=== PATIENT | female | born 1960 | race Caucasian/White ===

== ENCOUNTER → 2016-06-19 | Outpatient (REF) | payer MEDICARE, MEDICAID ==
[~2016-06-19] MED LIST: /ESOM40CA; /LOR25TA PO; /WARF5TA PO; ASPI325T; ASPI325T PO; ASPI325T10 PO; AVAP150T; CEPH500C PO; CETI10TA3 PO; CLOP75TA2 PO; CODE15TA PO; CRES40TA PO; CYCLOBENZAPRINE PO; DEPA500T2 PO; DIFL200T PO; EMLA2.5C EX; FISH500C PO; FLUC200T2 PO; GABA300C2 PO; GLIP5TAB20; GLUC1000; HUMA100I5 SC; HUMU70IN SC; HYDR1TAB97 PO; IMOD2TAB14 PO; INSUDET SC; JANUVIA; LANTINJ4 SC; LASI80TA; LOMO2.5T PO; NEUR300C PO; NITR0.4S; NITR100C37 PO; NOVO70VL SC; PEPC20TA2; PERC5TAB6 PO; PLAV75TA2; PREG50CA PO; ROSU10TA; TIZA2TAB3 PO; TORS20TA2; TORS20TA2 PO; TRAM50TA2 PO; TYLE325T5 PO; VOLT1GEL24 TD; WARF2TAB44 PO; ZEBE5TAB; ZETI10TA2 PO; ZOFR20TA PO; [UNRECOGNIZED DRUG - OTHER] PO; [UNRECOGNIZED DRUG - OTHER] SQ; crestor PO; humalog SQ
[2016-06-19 15:37] LABS: INR 2.34
== END ==
LOC: M LAB REF 14:58
PROVIDERS: ATTEND Internal Medicine
DX: Z95.811 Presence of heart assist device (principal); Z79.01 Long term (current) use of anticoagulants; I50.42 Chronic combined systolic (congestive) and diastolic (congestive) heart failure; I50.9 Heart failure, unspecified

== ENCOUNTER → 2016-07-09 | Outpatient (REF) | payer MEDICARE, MEDICAID ==
[~2016-07-09] MED LIST changes: +HYDR-3713 PO; -HYDR1TAB97 PO; -IMOD2TAB14 PO; +IMOD2TAB16 PO
[2016-07-09 17:33] LABS: INR 2.39
== END ==
LOC: M LAB REF 16:59
PROVIDERS: ATTEND Internal Medicine
DX: I50.9 Heart failure, unspecified (principal); Z95.811 Presence of heart assist device; I42.8 Other cardiomyopathies

== ENCOUNTER → 2016-07-29 | Outpatient (REF) | payer MEDICARE, MEDICAID ==
[2016-07-29 13:47] LABS: INR 1.89
== END ==
LOC: M LAB REF 12:25
PROVIDERS: ATTEND Internal Medicine
DX: I10 Essential (primary) hypertension (principal); Z95.811 Presence of heart assist device; Z79.01 Long term (current) use of anticoagulants; I50.9 Heart failure, unspecified

== ENCOUNTER → 2016-08-05 | Outpatient (REF) | payer MEDICARE, MEDICAID ==
[2016-08-05 11:50] LABS: INR 1.91
== END ==
LOC: M LAB REF 11:32
PROVIDERS: ATTEND Internal Medicine
DX: Z79.01 Long term (current) use of anticoagulants (principal)

== ENCOUNTER → 2016-08-18 | Outpatient (CLI) | payer MEDICARE, MEDICAID ==
--- NOTE | 2016-08-21 23:51 | ECWPNPC ---
PATIENT NAME: LIBRA SHEEHAN : 1960 GENDER: FEMALE VISIT DATE: 08/18/2016 DISCHARGE DATE: 08/18/16 1213 VISIT LOCKED DATE TIME: PHYSICIAN: GOLDIE NARAYAN RESOURCE: GOLDIE NARAYAN REASON FOR APPOINTMENT 1. BACK HISTORY OF PRESENT ILLNESS HISTORY OF PRESENT ILLNESS: PAIN THE PATIENT DESCRIBES THE PAIN... FALL RISK SCREENING: SCREENING :NO FALLS IN THE PAST YEAR TODAY'S VISIT: NOTES: RATES PAIN TODAY 5/10. PAIN IS CENTERED IN LOW BACK WITH RADIATION TO LEFT HIP. DESCRIBES PAIN CONSTANT, ACHING AND BURNING. PAIN IS ALSO SHARP AND STABBING SHOOT AND TENDER. WAS SEEN IN [place] FOR ABD HERNIA - NOT FELT TO BE A SURGICAL CASE AT THIS TIME. IS HAVING PAIN WITH EATING, LYING DOWN. PT'S LAST VISIT HERE WAS 01/22. [facility] PRESCRIBED OXYCODONE FOR MIGRAINE. . CURRENT MEDICATIONS TAKING LOPERAMIDE A-D 2 MG TABLET 1 TABLET ORALLY DAILY PRN TAKING LYRICA 50 MG CAPSULE 1 CAPSULE ORALLY BID TAKING CRESTOR 40 MG TABLET 1 TABLET ORALLY ONCE A DAY TAKING TORSEMIDE 10 MG TABLET 1 TABLET ORALLY ONCE A DAY NEEDED TAKING CLOPIDOGREL BISULFATE 75 MG TABLET 1 TABLET ORALLY ONCE A DAY TAKING DEPAKOTE 500 MG TABLET DELAYED RELEASE 1 TABLET IN AM 2 TABS IN PM ORALLY TWICE A DAY TAKING CEPHALEXIN 500 MG TABLET 1 TABLET ORALLY TWICE A DAY TAKING DIFLUCAN 200 MG TABLET 1 TABLET ORALLY ONCE A WEEK TAKING NOVOLOG MIX 70/30 (70-30) 100 UNIT/ML 1 40 UNITS SUBCUTANEOUS TWICE A DAY TAKING LANTUS SOLUTION 46 UNITS SUBCUTANEOUS EVERY EVENING TAKING WARFARIN SODIUM 4 MG TABLET ORALLY T///S TAKING KLOR-CON 10 10 MEQ TABLET EXTENDED RELEASE 1 TABLET WITH FOOD ORALLY WITH TORSEMIDE ONLY TAKING PERCOCET 10-325 MG TABLET 1 TABLET ORALLY EVERY 4 HRS PRN PAIN MDD=3 CHRONIC PAIN TAKING WARFARIN SODIUM 6 MG TABLET Thu SUN ORALLY ONCE A DAY NOT-TAKING WARFARIN SODIUM 5 MG TABLET 1 TABLET ORALLY // NOT-TAKING ZOFRAN 4 MG TABLET 2 TABLETS ORALLY TID DISCONTINUED VITAMIN B COMPLEX CAPSULE ORALLY DAILY MEDICATION LIST REVIEWED AND RECONCILED WITH THE PATIENT PAST MEDICAL HISTORY DIABETIC HEART PUMP - ON HEART TRANSPLANT LIST 2007 PA X 4 CAD CERVICAL CANCER CHRONIC INFECTIVE PROCESS AT PORT OF HEART PUMP ALLERGIES PENICILLIN (FOR ALLERGIES USE ONLY): HALLICINATIONS TOMATOES: HIVES: ALLERGY BEES: ANAPHYLAXIS: ALLERGY SOCIAL HISTORY GENERAL: TOBACCO USE ARE YOU A:NONSMOKER LEARNING BARRIERS / SPECIAL NEEDS ORIENTED TO PLAN OF CARE: PATIENT, PAIN MANAGEMENT PATIENT, ORIENTED TO PLAN OF CARE: PATIENT, PAIN MANAGEMENT PATIENT. NEW PATIENT PAIN DIARY TODAY'S VISITNOTES FROM 0-10, WHAT LEVEL IS YOUR PAIN TODAY?0 PAIN CLINIC PFS, CLERGY, PUBLIC HEALTH REFERRALS PFS REFERRAL NEEDED?NO CLERGY REFERRAL NEEDED?NO PUBLIC HEALTH REFERRAL NEEDED?NO WAS THE PROVIDER NOTIFIED OF ANY PERTINENT INFO?NO PFS REFERRAL NEEDED?NO CLERGY REFERRAL NEEDED?NO PUBLIC HEALTH REFERRAL NEEDED?NO WAS THE PROVIDER NOTIFIED OF ANY PERTINENT INFO?NO REVIEW OF SYSTEMS CONSTITUTIONAL: ANY CHANGE IN YOUR MEDICAL CONDITION? NO . CHILLS NO . FEVER NO . INFECTION: DO YOU HAVE NEW INFECTIONS? NO . DO YOU HAVE HISTORY OF MRSA? NO . MUSCULOSKELETAL: ANY NEW PATTERNS OF PAIN OR NUMBNESS? NO . GASTROENTEROLOGY: ANY NEW CHANGE IN BOWEL CONTROL? NO . GENITOURINARY: ANY NEW CHANGE IN BLADDER CONTROL? NO . IS THERE A CHANCE YOU COULD BE ? NO . HEMATOLOGY/LYMPH: DO YOU TAKE ANY BLOOD THINNERS? (FOR EXAMPLE- COUMADIN, PLAVIX, AGGRENOX, PLATEL, PRADAXA, OR XARELTO) YES, COUMADIN . WHEN WAS YOUR LAST DOSE? DATE: TIME: 08/17/16 1130 . NEUROLOGY: HAVE YOU FALLEN IN THE PAST 6 MONTHS? NO . ANY NEW EXTREMITY NUMBNESS OR WEAKNESS? NO . MIGRAINES PERSISTANT MIGRAINE FOLLOWED BY DR EAST . CARDIOLOGY: DO YOU HAVE A PACEMAKER OR DEFIBRILLATOR? YES, PACEMAKER/DEFIB AND HEART PUMP . RESPIRATORY: HAVE YOU BEEN SICK IN THE PAST WEEK? NO . FEVER NO . FLU LIKE SYMPTOMS? NO . COUGH NO . INTEGUMENTARY: DO YOU HAVE ANY RASHES OR OPEN SORES? NO . ALLERGIC/IMMUNO: ARE YOU ALLERGIC TO SHELLFISH OR IV DYE? NO . ANY NEW ALLERGIES? NO . PSYCHIATRIC: DO YOU HAVE THOUGHTS OF HURTING YOURSELF OR SOMEONE ELSE? NO . ARE YOU ABUSED, NEGLECTED, OR IN AN UNSAFE ENVIRONMENT? NO . ENDOCRINOLOGY: ARE YOU DIABETIC? YES . OTHER: DO YOU NEED ANY PRESCRIPTIONS? YES . IF YES, PLEASE LIST: PERCOCET . ANY NEW PROBLEMS WITH YOUR MEDICATIONS? NO . WHEN DID YOU LAST EAT? ____ . WHEN DID YOU LAST DRINK? ____ . WHAT DID YOU LAST DRINK? ____ . NAME OF PERSON DRIVING YOU HOME? ____ . DO YOU HAVE ANY OTHER QUESTIONS OR CONCERNS YES, SAW A SURGEON IN [place] FOR HERNIA. NOT DOING IT RIGHT NOW. . REVIEWED BY: PROVIDER: GOLDIE SUAREZ . VITAL SIGNS WT 206 LBS, HT 65 IN, BMI 34.28 INDEX, BP 102/60 MM HG, HR 81 /MIN, RR 16 /MIN, TEMP 96.3 F, OXYGEN SAT % 97%, NA INITIALS SC 11:24, REVIEWED BY: CM. EXAMINATION GENERAL EXAMINATION: LUNGS: NO BILATERAL WHEEZES, NO RALES. HEART:VAD HUM. ABDOMEN:SOFT TENDER RIGHT UPPER QUAD ABDOMINAL HERNIA. BOWEL SOUNDS ACTIVE. MUSCULOSKELETAL:TODAY ABLE TO FLEX AT RIGHT HIP, KNEE AND ANKLE WITH NO WEAKNESS APPRECIATED. PALPATION: POSITIVE FOR PAIN OVER LUMBAR SPINOUS PROCESSES AND ACROSS THE LUMBOSACRAL AXIS. L/S SPINE. POSITIVE FOR PAIN OVER L/S PARSPINALS. SLOW TO RISE TO STANDING POSITION. POSTURE UPRIGHT. GAIT NONANTALGIC. NO FOOT DROP. NEUROLOGIC EXAM:CN'S II-XII GROSSLY INTACT, ALERT AND ORIENTED X 3. ASSESSMENTS LUMBAR DISC DISEASE WITH RADICULOPATHY - M51.16 (PRIMARY) LUMBAR FACET ARTHROPATHY - M46.96 CHRONIC PRESCRIPTION OPIATE USE - Z79.899 TREATMENT LUMBAR DISC DISEASE WITH RADICULOPATHY REFILL PERCOCET TABLET, 10-325 MG, 1 TABLET, ORALLY, EVERY 4 HRS PRN PAIN MDD=3 CHRONIC PAIN, 30 DAY(S), 90, REFILLS 0 NOTES: UTOX TODAY, FALLS CARE PLAN: 1. RECOMMEND REMOVING ALL THROW RUGS. 2. RECOMMEND NIGHT LIGHTS 3. RECOMMEND WEARING RUBBER SOLED SHOES AND TO NOT GO BAREFOOT. 4.. ADVISED TO CHANGE POSITION SLOWLY FROM SUPINE TO STANDING TO AVOID DIZZINESS.5. . USE [employer] OR KEEP PORTABLE PHONE READILY AVAILABLE. CLINICAL NOTES: ISTOP REGISTRY REVIEWED AND DEMNOSTRATES COMPLLIANCE. BRINGS IN MEDICATIONS WHICH IS APPROPRIATE FOR WHAT WAS DISPENSED. RECENT URINE TOXICOLOGY REVIEWED. NO UNAUTHORIZED MEDICATIONS. NO ILLICIT SUBSTANCES AND PRESCRIBED MEDICATIONS WERE PRESENT. PROCEDURE CODES FA211 ESTABILISHED PATIENT [facility] FACILITY CHARGE G3772 BP SCR PRFRM RCMDD DEFIND SCR INTVL G6766 PAIN ASSESS POS TOOL F/U PLAN DOC 3016F PT SCRND UNHLTHY [place] USE 1124F ACP DISCUSS-NO DSCNMKR DOCD 1036F TOBACCO NON-USER 0518F FALL PLAN OF CARE DOCD G8427 DOC MEDS VERIFIED W/PT OR RE G8420 BMI<30 AND >=22 CALC & DOCU 3288F FALL RISK ASSESSMENT DOCD DISPOSITION & COMMUNICATION FOLLOW UP 2-3 MONTHS ELECTRONICALLY SIGNED BY MARY VEGA ON 08/21/2016 AT 07:55 PM EDT DISCLAIMER : THIS IS A VISIT SUMMARY EXTRACTED FROM THE [employer] CHART. IT IS NOT A COPY OF THE [employer] PROGRESS NOTE. MTDD
== END ==
LOC: M PAIN 11:20
PROVIDERS: ATTEND Nurse Practitioner Family
DX: Z09 Encounter for follow-up examination after completed treatment for conditions other than malignant neoplasm (principal); G89.29 Other chronic pain; M51.16 Intervertebral disc disorders with radiculopathy, lumbar region; M46.96 Unspecified inflammatory spondylopathy, lumbar region; E11.9 Type 2 diabetes mellitus without complications; I25.2 Old myocardial infarction; I25.10 Atherosclerotic heart disease of native coronary artery without angina pectoris; Z88.0 Allergy status to penicillin; Z91.018 Allergy to other foods; Z91.030 Bee allergy status; Z79.01 Long term (current) use of anticoagulants; Z79.4 Long term (current) use of insulin; Z79.891 Long term (current) use of opiate analgesic; Z79.899 Other long term (current) drug therapy; Z85.41 Personal history of malignant neoplasm of cervix uteri; Z95.0 Presence of cardiac pacemaker; Z95.811 Presence of heart assist device
CPT/HCPCS: 83615; 85610; 86140; G0463

== ENCOUNTER → 2016-08-18 | Outpatient (REF) | payer MEDICARE, MEDICAID ==
[2016-08-18 13:57] LABS: INR 2.16
== END ==
LOC: M LAB REF 13:22
PROVIDERS: ATTEND Nurse Practitioner Adult Health
DX: Z95.811 Presence of heart assist device (principal); Z79.01 Long term (current) use of anticoagulants; I50.9 Heart failure, unspecified

== ENCOUNTER → 2016-09-01 | Outpatient (REF) | payer MEDICARE, MEDICAID ==
[2016-09-01 13:10] LABS: INR 2.07
== END ==
LOC: M LAB REF 12:28
PROVIDERS: ATTEND Nurse Practitioner Adult Health
DX: Z95.811 Presence of heart assist device (principal); I50.9 Heart failure, unspecified

== ENCOUNTER → 2016-09-16 | Outpatient (REF) | payer MEDICARE, MEDICAID ==
[2016-09-16 13:29] LABS: INR 2.26
== END ==
LOC: M LAB REF 13:01
PROVIDERS: ATTEND Nurse Practitioner Adult Health
DX: I50.9 Heart failure, unspecified (principal); I42.8 Other cardiomyopathies

== ENCOUNTER → 2016-09-29 | Outpatient (REF) | payer MEDICARE, MEDICAID ==
[2016-09-29 19:28] LABS: INR 2.72
== END ==
LOC: M LAB REF 16:46
PROVIDERS: ATTEND Nurse Practitioner Adult Health
DX: I50.9 Heart failure, unspecified (principal); Z79.01 Long term (current) use of anticoagulants; Z95.811 Presence of heart assist device; I42.8 Other cardiomyopathies

== ENCOUNTER → 2016-10-14 | Outpatient (REF) | payer MEDICARE, MEDICAID ==
[2016-10-14 18:27] LABS: INR 3.41
== END ==
LOC: M LAB REF 16:16
PROVIDERS: ATTEND Internal Medicine
DX: I50.9 Heart failure, unspecified (principal); I42.8 Other cardiomyopathies; Z79.01 Long term (current) use of anticoagulants; Z95.811 Presence of heart assist device

== ENCOUNTER → 2016-10-28 | Outpatient (REF) | payer MEDICARE, MEDICAID ==
[2016-10-28 12:44] LABS: INR 2.99
== END ==
LOC: M LAB REF 12:29
PROVIDERS: ATTEND Internal Medicine
DX: I50.9 Heart failure, unspecified (principal); I42.8 Other cardiomyopathies; Z95.811 Presence of heart assist device; Z79.01 Long term (current) use of anticoagulants

== ENCOUNTER → 2016-11-04 | Outpatient (CLI) | payer MEDICARE, MEDICAID ==
--- NOTE | 2016-11-24 00:07 | ECWPNPC ---
PATIENT NAME: LIBRA SHEEHAN : 1960 GENDER: FEMALE VISIT DATE: 11/04/2016 DISCHARGE DATE: 11/04/16 1422 VISIT LOCKED DATE TIME: PHYSICIAN: GOLDIE NARAYAN RESOURCE: GOLDIE NARAYAN REASON FOR APPOINTMENT 1. BACK HISTORY OF PRESENT ILLNESS HISTORY OF PRESENT ILLNESS: PAIN THE PATIENT DESCRIBES THE PAIN... FALL RISK SCREENING: SCREENING :NO FALLS IN THE PAST YEAR TODAY'S VISIT: NOTES: RATES PAIN TODAYAS 03/17. TODAY IS A VERY BAD DAY FOR HER BACK. HAS HAD TO WALK SIGNIFICANT DISTANCE WITH VARIOUS DOCTOR APPOINTMENTS. PAIN STARTS AT BACK OF NECK AND RADIATES ALL THE WAY TO HER THIGHS. SAW PCP DR QUINONES TODAY.. CURRENT MEDICATIONS TAKING LOPERAMIDE A-D 2 MG TABLET 1 TABLET ORALLY DAILY PRN TAKING CRESTOR 40 MG TABLET 1 TABLET ORALLY ONCE A DAY TAKING CLOPIDOGREL BISULFATE 75 MG TABLET 1 TABLET ORALLY ONCE A DAY TAKING DEPAKOTE 500 MG TABLET DELAYED RELEASE 1 TABLET IN AM 2 TABS IN PM ORALLY TWICE A DAY TAKING CEPHALEXIN 500 MG TABLET 1 TABLET ORALLY TWICE A DAY TAKING DIFLUCAN 200 MG TABLET 1 TABLET ORALLY ONCE A WEEK TAKING NOVOLOG MIX 70/30 (70-30) 100 UNIT/ML 1 40 UNITS SUBCUTANEOUS TWICE A DAY TAKING LANTUS SOLUTION 46 UNITS SUBCUTANEOUS EVERY EVENING TAKING WARFARIN SODIUM 4 MG TABLET 1 TABLET ORALLY SUN TAKING KLOR-CON 10 10 MEQ TABLET EXTENDED RELEASE 1 TABLET WITH FOOD ORALLY WITH TORSEMIDE ONLY TAKING WARFARIN SODIUM 6 MG TABLET 1 TAB ORALLY ONCE A DAY EXCEPT SUN. TAKING PERCOCET 10-325 MG TABLET 1 TABLET ORALLY EVERY 4 HRS PRN PAIN MDD=3 CHRONIC PAIN NOT-TAKING LYRICA 50 MG CAPSULE 1 CAPSULE ORALLY BID NOT-TAKING TORSEMIDE 10 MG TABLET 1 TABLET ORALLY ONCE A DAY NEEDED NOT-TAKING PROTONIX 40 MG TABLET DELAYED RELEASE 1 TABLET ORALLY ONCE A DAY NOT-TAKING WARFARIN SODIUM 5 MG TABLET 1 TABLET ORALLY M// NOT-TAKING ZOFRAN 4 MG TABLET 2 TABLETS ORALLY TID MEDICATION LIST REVIEWED AND RECONCILED WITH THE PATIENT PAST MEDICAL HISTORY DIABETIC HEART PUMP - ON HEART TRANSPLANT LIST 2007 LA X 4 CAD CERVICAL CANCER CHRONIC INFECTIVE PROCESS AT PORT OF HEART PUMP ALLERGIES PENICILLIN (FOR ALLERGIES USE ONLY): HALLICINATIONS TOMATOES: HIVES: ALLERGY BEES: ANAPHYLAXIS: ALLERGY REVIEW OF SYSTEMS CONSTITUTIONAL: ANY CHANGE IN YOUR MEDICAL CONDITION? NO . CHILLS NO . FEVER NO . INFECTION: DO YOU HAVE NEW INFECTIONS? RECENT TEMPERATURE , HEADACHE, AND EAR ACHE . DO YOU HAVE HISTORY OF MRSA? NO . MUSCULOSKELETAL: ANY NEW PATTERNS OF PAIN OR NUMBNESS? YES, PAIN AND NUMBNESS IN FEET . GASTROENTEROLOGY: ANY NEW CHANGE IN BOWEL CONTROL? NO . GENITOURINARY: ANY NEW CHANGE IN BLADDER CONTROL? NO . IS THERE A CHANCE YOU COULD BE ? NO . HEMATOLOGY/LYMPH: DO YOU TAKE ANY BLOOD THINNERS? (FOR EXAMPLE- COUMADIN, PLAVIX, AGGRENOX, PLATEL, PRADAXA, OR XARELTO) YES, COUMADIN AND PLAVIX . WHEN WAS YOUR LAST DOSE? DATE: TIME: BOTH 11/03/16 11:15 . NEUROLOGY: HAVE YOU FALLEN IN THE PAST 6 MONTHS? NO . ANY NEW EXTREMITY NUMBNESS OR WEAKNESS? NO . CARDIOLOGY: DO YOU HAVE A PACEMAKER OR DEFIBRILLATOR? YES. ALSO HAS VAD IN PLACE. . RESPIRATORY: HAVE YOU BEEN SICK IN THE PAST WEEK? YES . FEVER YES, LAST WEEK . FLU LIKE SYMPTOMS? NO . COUGH NO . INTEGUMENTARY: DO YOU HAVE ANY RASHES OR OPEN SORES? NO . ALLERGIC/IMMUNO: ARE YOU ALLERGIC TO SHELLFISH OR IV DYE? NO . ANY NEW ALLERGIES? NO . PSYCHIATRIC: DO YOU HAVE THOUGHTS OF HURTING YOURSELF OR SOMEONE ELSE? NO . ARE YOU ABUSED, NEGLECTED, OR IN AN UNSAFE ENVIRONMENT? NO . ENDOCRINOLOGY: ARE YOU DIABETIC? YES . OTHER: DO YOU NEED ANY PRESCRIPTIONS? NO . IF YES, PLEASE LIST: ____ . ANY NEW PROBLEMS WITH YOUR MEDICATIONS? NO . WHEN DID YOU LAST EAT? ____ . WHEN DID YOU LAST DRINK? ____ . WHAT DID YOU LAST DRINK? ____ . NAME OF PERSON DRIVING YOU HOME? ____ . DO YOU HAVE ANY OTHER QUESTIONS OR CONCERNS NO . PSYCHOLOGY: STRESSORS ANTICIPITORY GRIEVING - MOM HAS BEEN DIAGNOSOED WITH PANCREATIC CANCER AND HAS VERY LIMITED LIFE EXPECTANCY. HAS NOT BEEN ABLE TO SLEEP. . REVIEWED BY: PROVIDER: GOLDIE SUAREZ . VITAL SIGNS WT 205.0 LBS, HT 65 IN, BMI 34.11 INDEX, HR 55 /MIN, RR 18 /MIN, TEMP 97.8 F, OXYGEN SAT % 96%, NA INITIALS TL 1331, REVIEWED BY: ADUNABLE TO GET BP DUE TO PT HAVING A HEART PUMP, MARLEN Ortez. AWARE- TL. EXAMINATION GENERAL EXAMINATION: LUNGS: NO BILATERAL WHEEZES, NO RALES. HEART:VAD HUM. ABDOMEN:SOFT TENDER RIGHT UPPER QUAD ABDOMINAL HERNIA. BOWEL SOUNDS ACTIVE. MUSCULOSKELETAL:TODAY ABLE TO FLEX AT RIGHT HIP, KNEE AND ANKLE WITH NO WEAKNESS APPRECIATED. PALPATION: POSITIVE FOR PAIN OVER LUMBAR SPINOUS PROCESSES AND ACROSS THE LUMBOSACRAL AXIS. L/S SPINE. POSITIVE FOR PAIN OVER L/S PARSPINALS. SLOW TO RISE TO STANDING POSITION. POSTURE UPRIGHT. GAIT NONANTALGIC. NO FOOT DROP. NEUROLOGIC EXAM:CN'S II-XII GROSSLY INTACT, ALERT AND ORIENTED X 3. ASSESSMENTS LUMBAR DISC DISEASE WITH RADICULOPATHY - M51.16 (PRIMARY) LUMBAR FACET ARTHROPATHY - M46.96 CHRONIC PRESCRIPTION OPIATE USE - Z79.899 TREATMENT LUMBAR DISC DISEASE WITH RADICULOPATHY START TIZANIDINE HCL TABLET, 2 MG, 1-2 TABLET NEEDED, ORALLY, TWICE A DAY FOR SEVERE SPASMS MDD=3, 30 DAY(S), 75, REFILLS 0 NOTES: CONTINE CURRENT MEDS. DO NOT TAKE MEDS AND DRIVE. USE COLD TO BACK FOR TIGHTNESS AND SPASMS. CLINICAL NOTES: ISTOP REGISTRY REVIEWED AND DEMNOSTRATES COMPLLIANCE. BRINGS IN MEDICATIONS WHICH IS APPROPRIATE FOR WHAT WAS DISPENSED. RECENT URINE TOXICOLOGY REVIEWED. NO UNAUTHORIZED MEDICATIONS. NO ILLICIT SUBSTANCES AND PRESCRIBED MEDICATIONS WERE PRESENT. PROCEDURE CODES FA211 ESTABILISHED PATIENT [facility] FACILITY CHARGE G8730 PAIN ASSESS POS TOOL F/U PLAN DOC G8427 DOC MEDS VERIFIED W/PT OR RE DISPOSITION & COMMUNICATION FOLLOW UP 3RD WEEK IN DECEMBER (REASON: BACK PAIN) ELECTRONICALLY SIGNED BY MARY VEGA ON 11/23/2016 AT 02:33 PM EDT DISCLAIMER : THIS IS A VISIT SUMMARY EXTRACTED FROM THE [employer] CHART. IT IS NOT A COPY OF THE [employer] PROGRESS NOTE. ARNAV
== END ==
LOC: M PAIN 13:30
PROVIDERS: ATTEND Nurse Practitioner Family
DX: M51.16 Intervertebral disc disorders with radiculopathy, lumbar region (principal); M46.96 Unspecified inflammatory spondylopathy, lumbar region; Z79.899 Other long term (current) drug therapy; Z79.891 Long term (current) use of opiate analgesic; Z79.4 Long term (current) use of insulin; Z79.01 Long term (current) use of anticoagulants; Z88.0 Allergy status to penicillin; Z91.018 Allergy to other foods; Z91.030 Bee allergy status

== ENCOUNTER → 2016-11-11 | Outpatient (REF) | payer MEDICARE, MEDICAID ==
[2016-11-11 20:21] LABS: INR 5.62
== END ==
LOC: M LAB REF 16:43
PROVIDERS: ATTEND Internal Medicine
DX: Z79.01 Long term (current) use of anticoagulants (principal); I50.9 Heart failure, unspecified; Z95.811 Presence of heart assist device

== ENCOUNTER → 2016-11-13 | Outpatient (CLI) | payer MEDICARE, MEDICAID ==
[2016-11-13 11:34] LABS: INR 3.36
== END ==
LOC: M LAB 10:47
PROVIDERS: ATTEND Physician Assistant Surgical
DX: Z79.01 Long term (current) use of anticoagulants (principal)

== ENCOUNTER → 2016-11-19 | Outpatient (REF) | payer MEDICARE, MEDICAID ==
[2016-11-19 18:46] LABS: INR 2.42
== END ==
LOC: M LAB REF 17:39
PROVIDERS: ATTEND Nurse Practitioner Adult Health
DX: Z95.811 Presence of heart assist device (principal); Z79.01 Long term (current) use of anticoagulants

== ENCOUNTER → 2016-12-02 | Outpatient (CLI) | payer MEDICARE, MEDICAID ==
[2016-12-02 11:42] LABS: MEAN CORPUSCULAR HEMOGLOBIN 30.7 pg (27.0-33.0); MEAN CORPUSCULAR HGB CONC 33.1 g/dl (32.0-36.5); MEAN CORPUSCULAR VOLUME 92.7 fl (80.0-96.0); RED CELL DISTRIBUTION WIDTH 15.9 % (11.5-14.5); WHITE BLOOD COUNT 7.2 K/mm3 (4.0-10.0)
[2016-12-02 11:47] LABS: INR 3.76
[2016-12-02 12:21] LABS: ALBUMIN 3.5 GM/DL (3.2-5.2); ALBUMIN/GLOBULIN RATIO 1.17 (1.00-1.93); BILIRUBIN,TOTAL 0.4 MG/DL (0.2-1.0); CALCIUM LEVEL 8.7 MG/DL (8.5-10.1); CREATININE FOR GFR 1.1 MG/DL (0.55-1.02); GLOMERULAR FILTRATION RATE 54.7 (>51); TOTAL PROTEIN 6.5 GM/DL (6.4-8.2)
== END ==
LOC: M LAB 10:30
PROVIDERS: ATTEND Nurse Practitioner Adult Health
DX: Z95.811 Presence of heart assist device (principal)

== ENCOUNTER → 2016-12-23 | Outpatient (REF) | payer MEDICARE, MEDICAID ==
[~2016-12-23] MED LIST changes: +PERC5TAB12 PO; -PERC5TAB6 PO; +VOLT1GEL15 TD; -VOLT1GEL24 TD; -ZETI10TA2 PO; +ZETI10TA30 PO
[2016-12-23 18:30] LABS: INR 2.07
== END ==
LOC: M LAB REF 17:15
PROVIDERS: ATTEND Nurse Practitioner Adult Health
DX: Z95.811 Presence of heart assist device (principal); J18.9 Pneumonia, unspecified organism

== ENCOUNTER → 2017-01-01 | Outpatient (REF) | payer MEDICARE, MEDICAID ==
[2017-01-01 17:01] LABS: INR 2.63
== END ==
LOC: M LAB REF 16:25
PROVIDERS: ATTEND Nurse Practitioner Adult Health
DX: J18.9 Pneumonia, unspecified organism (principal); Z95.811 Presence of heart assist device

== ENCOUNTER → 2017-01-06 | Outpatient (REF) | payer MEDICARE, MEDICAID ==
[2017-01-06 12:57] LABS: INR 1.8
== END ==
LOC: M LAB REF 12:32
PROVIDERS: ATTEND Nurse Practitioner Adult Health
DX: Z95.811 Presence of heart assist device (principal)

== ENCOUNTER → 2017-01-15 | Outpatient (REF) | payer MEDICARE, MEDICAID ==
[2017-01-15 18:14] LABS: INR 2.36
== END ==
LOC: M LAB REF 17:08
PROVIDERS: ATTEND Nurse Practitioner Adult Health
DX: J18.9 Pneumonia, unspecified organism (principal); Z95.811 Presence of heart assist device

== ENCOUNTER → 2017-01-27 | Outpatient (CLI) | payer MEDICARE, MEDICAID ==
--- NOTE | 2017-02-08 23:29 | ECWPNPC ---
PATIENT NAME: LIBRA SHEEHAN : 1960 GENDER: FEMALE VISIT DATE: 01/27/2017 DISCHARGE DATE: 01/27/17 1224 VISIT LOCKED DATE TIME: PHYSICIAN: GOLDIE NARAYAN RESOURCE: GOLDIE NARAYAN REASON FOR APPOINTMENT 1. BACK HISTORY OF PRESENT ILLNESS HISTORY OF PRESENT ILLNESS: PAIN THE PATIENT DESCRIBES THE PAIN... FALL RISK SCREENING: SCREENING :NO FALLS IN THE PAST YEAR TODAY'S VISIT: NOTES: REPORTS PAIN FROM BASE OF NECK TO LOW BACK AND INTO THE LEFT LEG TO LEVEL OF THE KNEE. RATES PAIN 10/10. IN DECEMBER WAS HOSPITALIZED AT [facility] WITH PNEUMONIA. THIS MANIFESTED PAIN IN MID RIGHT BACK AND COULD BARELY WALK. WAS IN FOR 1 1/2 WEEKS AND WAS ON ABX. ALSO NEEDED NEW EQUIPMENT FOR HER VAD. IS SEEING INFECTIOUS DISEASES AT [place] ALONG WITH THE [facility]PLANT [facility]INIC. CURRENT MEDICATIONS TAKING CRESTOR 40 MG TABLET 1 TABLET ORALLY ONCE A DAY TAKING CLOPIDOGREL BISULFATE 75 MG TABLET 1 TABLET ORALLY ONCE A DAY TAKING DEPAKOTE 500 MG TABLET DELAYED RELEASE 1 TABLET IN AM 2 TABS IN PM ORALLY TWICE A DAY TAKING CEPHALEXIN 500 MG TABLET 1 TABLET ORALLY TWICE A DAY TAKING DIFLUCAN 200 MG TABLET 1 TABLET ORALLY ONCE A WEEK TAKING NOVOLOG MIX 70/30 (70-30) 100 UNIT/ML 1 40 UNITS SUBCUTANEOUS TWICE A DAY TAKING LANTUS SOLUTION 46 UNITS SUBCUTANEOUS EVERY EVENING TAKING WARFARIN SODIUM 4 MG TABLET 1 TABLET ORALLY SUN TAKING KLOR-CON 10 10 MEQ TABLET EXTENDED RELEASE 1 TABLET WITH FOOD ORALLY WITH TORSEMIDE ONLY TAKING WARFARIN SODIUM 6 MG TABLET 1 TAB ORALLY ONCE A DAY EXCEPT SUN. TAKING PERCOCET 10-325 MG TABLET 1 TABLET ORALLY EVERY 4 HRS PRN PAIN MDD=3 CHRONIC PAIN TAKING TIZANIDINE HCL 2 MG TABLET 1-2 TABLET NEEDED ORALLY TWICE A DAY FOR SEVERE SPASMS MDD=3 NOT-TAKING LOPERAMIDE A-D 2 MG TABLET 1 TABLET ORALLY DAILY PRN NOT-TAKING LYRICA 50 MG CAPSULE 1 CAPSULE ORALLY BID NOT-TAKING TORSEMIDE 10 MG TABLET 1 TABLET ORALLY ONCE A DAY NEEDED NOT-TAKING PROTONIX 40 MG TABLET DELAYED RELEASE 1 TABLET ORALLY ONCE A DAY NOT-TAKING WARFARIN SODIUM 5 MG TABLET 1 TABLET ORALLY M/W/F NOT-TAKING ZOFRAN 4 MG TABLET 2 TABLETS ORALLY TID MEDICATION LIST REVIEWED AND RECONCILED WITH THE PATIENT PAST MEDICAL HISTORY DIABETIC HEART PUMP - ON HEART TRANSPLANT LIST 2007 AR X 4 CAD CERVICAL CANCER CHRONIC INFECTIVE PROCESS AT PORT OF HEART PUMP CVA X2 ALLERGIES PENICILLIN (FOR ALLERGIES USE ONLY): HALLICINATIONS TOMATOES: HIVES: ALLERGY BEES: ANAPHYLAXIS: ALLERGY SURGICAL HISTORY HYSTERECTOMY 1992 CHOLECYSTECTOMY 1998 HERNIA REPAIR 2010 HEART PUMP 2009 PACEMAKER/ AICD 2008 ALL TEETH PULLED HOSPITALIZATION/MAJOR DIAGNOSTIC PROCEDURE 3 STROKES 2 AR'S IN FOR HIGH INR NOVEMBER 2015 REVIEW OF SYSTEMS REVIEWED BY: PROVIDER: GOLDIE SUAREZ . CONSTITUTIONAL: ANY CHANGE IN YOUR MEDICAL CONDITION? NO . CHILLS NO . FEVER NO . INFECTION: DO YOU HAVE NEW INFECTIONS? NO . DO YOU HAVE HISTORY OF MRSA? NO . MUSCULOSKELETAL: ANY NEW PATTERNS OF PAIN OR NUMBNESS? NO . GASTROENTEROLOGY: ANY NEW CHANGE IN BOWEL CONTROL? NO . GENITOURINARY: ANY NEW CHANGE IN BLADDER CONTROL? NO . IS THERE A CHANCE YOU COULD BE ? NO . HEMATOLOGY/LYMPH: DO YOU TAKE ANY BLOOD THINNERS? (FOR EXAMPLE- COUMADIN, PLAVIX, AGGRENOX, PLATEL, PRADAXA, OR XARELTO) YES, PLAVIX AND COUMADIN - WAS 8.4 WHILE IN HOSPITAL - HAD VIT K INFUSION AND LABS CHECKED TODAY . WHEN WAS YOUR LAST DOSE? DATE: TIME: . NEUROLOGY: HAVE YOU FALLEN IN THE PAST 6 MONTHS? NO . ANY NEW EXTREMITY NUMBNESS OR WEAKNESS? NO . CARDIOLOGY: DO YOU HAVE A PACEMAKER OR DEFIBRILLATOR? YES . RESPIRATORY: HAVE YOU BEEN SICK IN THE PAST WEEK? NO . FEVER NO . FLU LIKE SYMPTOMS? NO . COUGH NO . INTEGUMENTARY: DO YOU HAVE ANY RASHES OR OPEN SORES? NO . ALLERGIC/IMMUNO: ARE YOU ALLERGIC TO SHELLFISH OR IV DYE? NO . ANY NEW ALLERGIES? NO . PSYCHIATRIC: DO YOU HAVE THOUGHTS OF HURTING YOURSELF OR SOMEONE ELSE? NO . ARE YOU ABUSED, NEGLECTED, OR IN AN UNSAFE ENVIRONMENT? NO . ENDOCRINOLOGY: ARE YOU DIABETIC? YES . OTHER: DO YOU NEED ANY PRESCRIPTIONS? YES, PERCOSET . IF YES, PLEASE LIST: ____ . ANY NEW PROBLEMS WITH YOUR MEDICATIONS? NO . WHEN DID YOU LAST EAT? ____ . WHEN DID YOU LAST DRINK? ____ . WHAT DID YOU LAST DRINK? ____ . NAME OF PERSON DRIVING YOU HOME? ____ . DO YOU HAVE ANY OTHER QUESTIONS OR CONCERNS NO . VITAL SIGNS WT 196.2 LBS, HT 65 IN, BMI 32.65 INDEX, BP 91/68 MM HG, HR 70 /MIN, RR 16 /MIN, TEMP 98.2 F, OXYGEN SAT % 99%, NA INITIALS SC 11:38, REVIEWED BY: [place]. EXAMINATION GENERAL EXAMINATION: PSYCHALERT, ORIENTED, VERY TALKATIVE. LUNGS:CLEAR TO AUSCULTATION BILATERALLY, DECREASED AIR ENTRY AT BASES. HEART:VAD HUM. MUSCULOSKELETAL:POINT TENDERNESS OVER RIGHT SIJ, TRIGGER POINTS IDENTIFIED ALONG THORACIC PARAVERTEBRAL MUSCLES. RISES EASILY TO STANDING POSITION. , MUSCLE STRENGTH TESTING 5/5 BILATERAL LOWER EXTREMITIES. EXTREMITIES:NO EDEMA. ASSESSMENTS LUMBAR DISC DISEASE WITH RADICULOPATHY - M51.16 (PRIMARY) LUMBAR FACET ARTHROPATHY - M46.96 CHRONIC PRESCRIPTION OPIATE USE - Z79.899 TREATMENT LUMBAR DISC DISEASE WITH RADICULOPATHY REFILL PERCOCET TABLET, 10-325 MG, 1 TABLET, ORALLY, EVERY 4 HRS PRN PAIN MDD=3 CHRONIC PAIN, 30 DAY(S), 90, REFILLS 0 REFILL TIZANIDINE HCL TABLET, 2 MG, 1-2 TABLET NEEDED, ORALLY, TWICE A DAY FOR SEVERE SPASMS MDD=3, 30 DAY(S), 75, REFILLS 0 NOTES: DO NOT TAKE MEDS AND DRIVECALL FOR EARLIER APPOINTMENT IF PAIN NOT ABLE MANAGABLE. PROCEDURE CODES FA211 ESTABILISHED PATIENT [facility] CHARGE G8730 PAIN ASSESS POS TOOL F/U PLAN DOC G8427 DOC MEDS VERIFIED W/PT OR RE DISPOSITION & COMMUNICATION FOLLOW UP 3 MONTHS (REASON: BACK PAIN) ELECTRONICALLY SIGNED BY MARY VEGA ON 02/08/2017 AT 02:41 PM EDT DISCLAIMER : THIS IS A VISIT SUMMARY EXTRACTED FROM THE [employer] CHART. IT IS NOT A COPY OF THE [employer] PROGRESS NOTE. ARNAV
== END ==
LOC: M PAIN 11:45
PROVIDERS: ATTEND Nurse Practitioner Family
DX: M51.16 Intervertebral disc disorders with radiculopathy, lumbar region (principal); M46.96 Unspecified inflammatory spondylopathy, lumbar region; E11.9 Type 2 diabetes mellitus without complications; I51.9 Heart disease, unspecified; I25.2 Old myocardial infarction; Z79.4 Long term (current) use of insulin; Z79.01 Long term (current) use of anticoagulants; Z79.899 Other long term (current) drug therapy; Z88.0 Allergy status to penicillin; Z91.018 Allergy to other foods; Z91.030 Bee allergy status; Z86.73 Personal history of transient ischemic attack (TIA), and cerebral infarction without residual deficits; Z85.41 Personal history of malignant neoplasm of cervix uteri

== ENCOUNTER → 2017-01-27 | Outpatient (REF) | payer MEDICARE, MEDICAID | LOC: M LAB REF 10:28 | PROVIDERS: ATTEND Nurse Practitioner Adult Health | DX: J18.9 Pneumonia, unspecified organism (principal); Z95.811 Presence of heart assist device ==

== ENCOUNTER → 2017-01-27 | Outpatient (REF) | payer MEDICARE, MEDICAID ==
[2017-01-27 14:09] LABS: INR 2.07
== END ==
LOC: M LAB REF 13:22
PROVIDERS: ATTEND Nurse Practitioner Adult Health
DX: J18.9 Pneumonia, unspecified organism (principal); Z79.811 Long term (current) use of aromatase inhibitors; Z79.01 Long term (current) use of anticoagulants

== ENCOUNTER → 2017-02-18 | Outpatient (REF) | payer MEDICARE, MEDICAID ==
[2017-02-18 18:40] LABS: INR 1.93
== END ==
LOC: M LAB REF 16:33
PROVIDERS: ATTEND Nurse Practitioner Adult Health
DX: J18.9 Pneumonia, unspecified organism (principal); Z95.811 Presence of heart assist device

== ENCOUNTER → 2017-03-04 | Outpatient (REF) | payer MEDICARE, MEDICAID ==
[2017-03-04 13:49] LABS: INR 1.64
== END ==
LOC: M LAB REF 13:07
PROVIDERS: ATTEND Nurse Practitioner Adult Health
DX: J18.9 Pneumonia, unspecified organism (principal); Z95.811 Presence of heart assist device; Z79.01 Long term (current) use of anticoagulants

== ENCOUNTER 2017-03-18 16:44 | Emergency (ER) | payer MEDICARE, MEDICAID ==
[~2017-03-18] VITALS: Ht 165.1 cm; Wt 89.0 kg
[2017-03-18] MEDS ORDERED: MORPHINE 2 MG/ML 1ML SYRINGE IV ONE (17:15)
[2017-03-18 17:52] LABS: MEAN CORPUSCULAR HEMOGLOBIN 31.6 pg (27.0-33.0); MEAN CORPUSCULAR HGB CONC 33.1 g/dl (32.0-36.5); MEAN CORPUSCULAR VOLUME 95.7 fl (80.0-96.0); RED CELL DISTRIBUTION WIDTH 15.9 % (11.5-14.5); WHITE BLOOD COUNT 16.6 10^3/uL (4.0-10.0)
[2017-03-18] MEDS ORDERED: PERCOCET 5MG/325MG TAB PO ONE ×2 (18:00→21:45)
[2017-03-18 18:03] LABS: INR 2.32
--- NOTE | 2017-03-18 18:13 | REP ---
Portable chest, 05:50 p.m., single AP view, patient sitting: Comparison is 02/27/2013. Lung ly are clear. Cardiac size is enlarged. There are sternotomy wires. There is a pacemaker. There is a cardiac ventricular assist device, unchanged. Impression: No acute cardiopulmonary findings. No pneumothorax, hemothorax or pulmonary contusion. Signed by David Knutson MD 03/18/2017 06:05 P
[2017-03-18 18:22] LABS: CREATININE FOR GFR 1.16 MG/DL (0.55-1.02); GLOMERULAR FILTRATION RATE 51.3 (>51)
[2017-03-18 18:23] LABS: CALCIUM LEVEL 9.3 MG/DL (8.5-10.1)
[2017-03-18 18:27] LABS: ALBUMIN 3.7 GM/DL (3.2-5.2); ALBUMIN/GLOBULIN RATIO 1.16 (1.00-1.93); ALKALINE PHOSPHATASE 70 U/L (45-117); ALT/SGPT 16 U/L (12-78); AST/SGOT 17 U/L (15-37); BILIRUBIN,DIRECT 0.2 MG/DL (0.0-0.2); BILIRUBIN,TOTAL 0.4 MG/DL (0.2-1.0); TOTAL PROTEIN 6.9 GM/DL (6.4-8.2)
[2017-03-18] MEDS ORDERED: ISOVUE-370 76% 100ML VIAL (Q9967) As Ordered ONE (18:44)
[2017-03-18] MEDS ORDERED: ONDANSETRON 4MG/2ML VIAL (J2405) IV ONE (19:15)
--- NOTE | 2017-03-18 19:50 | REPUSA ---
CLINICAL HISTORY: FALL ON COUMADIN TECHNIQUE: Multiple axial brain CT scan sections were obtained from base to vertex without contrast a dministration. COMMENTS: There is encephalomalacia noted involving the left parietal lobe compatible with old infarct. The study shows normal configuration of sella turcica. There are no intra or extra-axial collections. There is no mass effect or midline shift. There is no evidence of hematoma formation. No hydrocephal us is present. No abnormal calcifications are noted. The sinuses and mastoid air cells are patent. IMPRESSION: Old left parietal infarct. No evidence of acute intracranial pathology. Thank you for your kind referral of this patient.
--- NOTE | 2017-03-18 20:00 | REPUSA ---
CLINICAL HISTORY: Back pain. Fall. TECHNIQUE: Multiple axial images were obtained through the L1-L2, L2-L3, L3-L4, L4-L5 and L5-S1 inter spaces. Images were also reconstructed in coronal and sagittal planes. COMMENTS: Note is made of mild synthetic plasterer. Aic anterior wedging compression fracture deformity involving L1 vertebra l body. There is no acute fracture visualized. The paraspinal soft tissues are unremarkable. There are no lyt ic or blastic lesions. Straightening of lumbar lordosis is seen, suggesting muscular spasm. There is evidence of multilevel disk disease, demonstrated by osteophytosis ad endplate sclerosis. Evaluation of individual levels reveals the following: At L4-L5 and L5-S1, broad-based disk bulge, results in mild bilateral foraminal narrowing. Canal is p atent. Remaing levels are unremarkable. IMPRESSION: 1. Mild anterior chronic wedging compression fracture deformity involving L1 vertebral body. 2. Straightening of lumbar lordosis is seen, suggesting muscular spasm. 3. At L4-L5 and L5-S1, broad-based disk bulge, results in mild bilateral foraminal narrowing. Canal is patent. Thank you for your kind referral of this patient.
--- NOTE | 2017-03-18 20:20 | REPUSA ---
CLINICAL HISTORY: Pain. TECHNIQUE: Multiple axial, coronal, sagittal CT images were obtained through the abdomen and pelvis after administration of oral and intravenous contrast material. COMMENTS: The liver is enlarged measuring 22 cm in length. There is no intra or extrahepatic biliary ductal di latation. The spleen is normal. The patient is status post cholecystectomy. The pancreas is of nor mal contour and attenuation characteristics. There is 2.5 cm hypodense nodule in the left adrenal gl and compatible with adenoma. Both kidneys demonstrate prompt and equal nephrograms. The kidneys are normal in size, shape and con figuration. There is no evidence of renal or ureteral mass. No renal or ureteral calculi are identi fied. There is no hydroureter or hydronephrosis. There is no evidence for appendicitis. Diffuse sigmoid diverticulosis is present. Note is made of ci rcumferential wall thickening involving duodenum and loops of jejunum compatible with enteritis. 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 No evidence for small or larg e bowel obstruction. There is no evidence of abdominal ascites or lymphadenopathy. Bladder prolapse is noted. There is no pelvic ascites or lymphadenopathy. The patient is status post complete hysterectomy. Images of the lung bases show no evidence of pleural or parenchymal mass. There are no pleural effus ions. Right basilar round opacity is present may represent developing pneumonia. Consider follow-up with CT chest is recommended to document resolution. The heart is severely enlarged. There is a ca rdiac device noted. The bony structures are free of lytic or blastic lesions. Multilevel degenerative changes are seen i nvolving the thoracolumbar spine. Note is made of mild anterior wedging compression fracture deformi ty involving L1 vertebral body. Scattered calcifications are seen involving the aorta and major branches compatible with atherosclero sis. IMPRESSION: 1. Circumferential wall thickening involving duodenum and loops of jejunum compatible with enteritis . Consider consultation with GI service and follow-up with upper endoscopy. 2. Left adrenal adenoma. 3. Right basilar round opacity is present may represent developing pneumonia. Consider follow-up wi th CT chest is recommended to document resolution. 4. Mild anterior wedging compression fracture deformity involving L1 vertebral body. 5. Additional findings as above.
[2017-03-18 22:31] VITALS: BP 138/75
--- NOTE | 2017-03-19 02:59 | ECGEPIP ---
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 RBBB NSTTW ABNORMALITIES SIMILAR TO 02/27/13 Electronically Signed On 03-19-2017 2:59:26 EDT by Jelani Ordaz
== END 2017-03-18 22:36 | disposition short-term general hospital (02) ==
LOC: M ED 16:44
DX: R55 Syncope and collapse (principal); Z95.810 Presence of automatic (implantable) cardiac defibrillator; I50.9 Heart failure, unspecified
CPT/HCPCS: 70450; 71010; 72131; 74177; 80048; 80076; 82550; 82553; 83690; 84484; 85027; 85610; 85730; 93005; 93041; 96374; 96375; 99284; J2405; Q9967

== ENCOUNTER → 2017-03-24 | Outpatient (REF) | payer MEDICARE, MEDICAID ==
[2017-03-24 18:17] LABS: INR 2.41
== END ==
LOC: M LAB REF 17:14
PROVIDERS: ATTEND Nurse Practitioner Adult Health
DX: Z95.811 Presence of heart assist device (principal); Z79.01 Long term (current) use of anticoagulants

== ENCOUNTER → 2017-04-01 | Outpatient (REF) | payer MEDICARE, MEDICAID ==
[2017-04-01 13:48] LABS: INR 2.27
== END ==
LOC: M LAB REF 11:55
PROVIDERS: ATTEND Nurse Practitioner Adult Health
DX: I42.9 Cardiomyopathy, unspecified (principal); Z79.01 Long term (current) use of anticoagulants; Z79.811 Long term (current) use of aromatase inhibitors

== ENCOUNTER → 2017-04-27 | Outpatient (REF) | payer MEDICARE, MEDICAID ==
[2017-04-27 19:05] LABS: INR 2.63
== END ==
LOC: M LAB REF 17:37
PROVIDERS: ATTEND Nurse Practitioner Adult Health
DX: Z79.01 Long term (current) use of anticoagulants (principal); Z95.811 Presence of heart assist device

== ENCOUNTER → 2017-06-11 | Outpatient (CLI) | payer MEDICARE, MEDICAID | LOC: M PAIN 10:45 | DX: G89.29 Other chronic pain (principal); M51.16 Intervertebral disc disorders with radiculopathy, lumbar region; M46.96 Unspecified inflammatory spondylopathy, lumbar region; Z79.899 Other long term (current) drug therapy; E11.9 Type 2 diabetes mellitus without complications; I25.2 Old myocardial infarction; I25.10 Atherosclerotic heart disease of native coronary artery without angina pectoris; Z86.73 Personal history of transient ischemic attack (TIA), and cerebral infarction without residual deficits; Z85.41 Personal history of malignant neoplasm of cervix uteri; Z79.01 Long term (current) use of anticoagulants; Z79.4 Long term (current) use of insulin; Z88.0 Allergy status to penicillin; Z91.030 Bee allergy status; Z91.018 Allergy to other foods; Z79.891 Long term (current) use of opiate analgesic | CPT/HCPCS: G0463 ==

== ENCOUNTER → 2017-06-16 | Outpatient (REF) | payer MEDICARE, MEDICAID ==
[2017-06-16 20:50] LABS: INR 2.08; PROTHROMBIN TIME 24.1 SECONDS (12.4-14.5)
[2017-06-16 20:53] LABS: LDH LACTATE DEHYDROGENASE 203 U/L (84-246)
[2017-06-16 20:53] LABS: C REACTIVE PROTEIN QUANTITATIV 1.36 MG/DL (0.00-0.30)
== END ==
LOC: M LAB REF 20:01
DX: Z95.811 Presence of heart assist device (principal); I42.9 Cardiomyopathy, unspecified; Z79.01 Long term (current) use of anticoagulants
CPT/HCPCS: 83615

== ENCOUNTER → 2017-07-22 | Outpatient (REF) | payer MEDICARE, MEDICAID ==
[2017-07-22 16:00] LABS: INR 1.16
[2017-07-22 16:11] LABS: LDH LACTATE DEHYDROGENASE 251 U/L (84-246)
[2017-07-22 16:11] LABS: C REACTIVE PROTEIN QUANTITATIV 2.42 MG/DL (0.00-0.30)
== END ==
LOC: M LAB REF 15:14
DX: Z91.89 Other specified personal risk factors, not elsewhere classified (principal); Z95.811 Presence of heart assist device
CPT/HCPCS: 83615

== ENCOUNTER → 2017-07-28 | Outpatient (CLI) | payer MEDICARE, MEDICAID | LOC: M PAIN 11:30 | DX: M51.16 Intervertebral disc disorders with radiculopathy, lumbar region (principal); M46.96 Unspecified inflammatory spondylopathy, lumbar region; Z95.811 Presence of heart assist device; E11.9 Type 2 diabetes mellitus without complications; I25.2 Old myocardial infarction; Z79.4 Long term (current) use of insulin; Z79.891 Long term (current) use of opiate analgesic; Z79.899 Other long term (current) drug therapy; Z88.0 Allergy status to penicillin; Z91.030 Bee allergy status; Z91.018 Allergy to other foods; Z85.41 Personal history of malignant neoplasm of cervix uteri; Z86.73 Personal history of transient ischemic attack (TIA), and cerebral infarction without residual deficits | CPT/HCPCS: G0463 ==

== ENCOUNTER → 2017-08-12 | Outpatient (REF) | payer MEDICARE, MEDICAID ==
[2017-08-12 14:32] LABS: PROTHROMBIN TIME 20.5 SECONDS (12.4-14.5)
[2017-08-12 15:03] LABS: LDH LACTATE DEHYDROGENASE 232 U/L (84-246)
[2017-08-12 15:03] LABS: C REACTIVE PROTEIN QUANTITATIV 1.72 MG/DL (0.00-0.30)
== END ==
LOC: M LAB REF 13:34
DX: Z91.89 Other specified personal risk factors, not elsewhere classified (principal); Z95.811 Presence of heart assist device
CPT/HCPCS: 83615

== ENCOUNTER → 2017-08-28 | Outpatient (REF) | payer MEDICARE, MEDICAID ==
[2017-08-28 16:49] LABS: INR 0.95; PROTHROMBIN TIME 12.8 SECONDS (12.4-14.5)
[2017-08-28 16:51] LABS: C REACTIVE PROTEIN QUANTITATIV 0.69 MG/DL (0.00-0.30)
[2017-08-28 16:51] LABS: LDH LACTATE DEHYDROGENASE 237 U/L (84-246)
== END ==
LOC: M LAB REF 16:25
DX: Z91.89 Other specified personal risk factors, not elsewhere classified (principal); Z95.811 Presence of heart assist device
CPT/HCPCS: 83615

== ENCOUNTER → 2017-09-18 | Outpatient (REF) | payer MEDICARE, MEDICAID ==
[2017-09-18 12:52] LABS: INR 4.49; PROTHROMBIN TIME 45.1 SECONDS (12.4-14.5)
[2017-09-18 13:14] LABS: LDH LACTATE DEHYDROGENASE 212 U/L (84-246)
[2017-09-18 13:14] LABS: C REACTIVE PROTEIN QUANTITATIV 5.75 MG/DL (0.00-0.30)
== END ==
LOC: M LAB REF 12:12
DX: Z91.89 Other specified personal risk factors, not elsewhere classified (principal); Z95.811 Presence of heart assist device
CPT/HCPCS: 83615

== ENCOUNTER → 2017-10-14 | Outpatient (REF) | payer MEDICARE, MEDICAID ==
[2017-10-14 17:59] LABS: LDH LACTATE DEHYDROGENASE 216 U/L (84-246)
[2017-10-14 17:59] LABS: C REACTIVE PROTEIN QUANTITATIV 7.47 MG/DL (0.00-0.30)
[2017-10-14 18:10] LABS: INR 3.52
== END ==
LOC: M LAB REF 16:44
DX: Z91.89 Other specified personal risk factors, not elsewhere classified (principal); Z95.811 Presence of heart assist device
CPT/HCPCS: 83615

== ENCOUNTER → 2017-11-09 | Outpatient (REF) | payer MEDICARE, MEDICAID ==
[2017-11-09 19:30] LABS: LDH LACTATE DEHYDROGENASE 217 U/L (84-246)
[2017-11-09 19:39] LABS: INR 2.74; PROTHROMBIN TIME 30.2 SECONDS (12.4-14.5)
== END ==
LOC: M LAB REF 18:01
DX: Z91.89 Other specified personal risk factors, not elsewhere classified (principal); Z95.811 Presence of heart assist device
CPT/HCPCS: 83615

== ENCOUNTER → 2018-02-04 | Outpatient (CLI) | payer MEDICARE, MEDICAID | LOC: M PAIN 09:15 | DX: M46.96 Unspecified inflammatory spondylopathy, lumbar region (principal); Z79.899 Other long term (current) drug therapy; M51.16 Intervertebral disc disorders with radiculopathy, lumbar region; E11.9 Type 2 diabetes mellitus without complications; I25.10 Atherosclerotic heart disease of native coronary artery without angina pectoris; I25.2 Old myocardial infarction; Z86.73 Personal history of transient ischemic attack (TIA), and cerebral infarction without residual deficits; Z85.41 Personal history of malignant neoplasm of cervix uteri; Z88.0 Allergy status to penicillin; Z91.030 Bee allergy status; Z91.018 Allergy to other foods; Z79.4 Long term (current) use of insulin; Z79.01 Long term (current) use of anticoagulants; Z79.891 Long term (current) use of opiate analgesic | CPT/HCPCS: G0463 ==

== ENCOUNTER 2018-02-21 11:41 | Emergency (ER) | payer MEDICARE, MEDICAID ==
[2018-02-21 13:40] LABS: BASO % 0.3 % (0.0-1.0); EOS % 0.2 % (0.0-3.0); HEMATOCRIT 32.5 % (36.0-47.0); IMMATURE GRANULOCYTE % 0.8 % (0-3.0); LYMPH % 7.7 % (24.0-44.0); MEAN CORPUSCULAR HEMOGLOBIN 26.2 pg (27.0-33.0); MEAN CORPUSCULAR HGB CONC 30.8 g/dl (32.0-36.5); MEAN CORPUSCULAR VOLUME 85.1 fl (80.0-96.0); MONO # 0.6 10^3/uL (0.0-0.8); MONO % 4.7 % (0.0-5.0); NEUTROPHILS # 10.6 10^3/uL (1.8-7.7); NEUTROPHILS % 86.3 % (36.0-66.0); PLATELET COUNT, AUTOMATED 310 10^3/uL (150-450); RED BLOOD COUNT 3.82 10^6/uL (4.00-5.40); RED CELL DISTRIBUTION WIDTH 15.4 % (11.5-14.5); WHITE BLOOD COUNT 12.3 10^3/uL (4.0-10.0)
[2018-02-21] MEDS: NS 500 ML IV ×2 (13:40→15:30)
[2018-02-21 13:50] LABS: ALBUMIN 3.1 GM/DL (3.2-5.2); ALBUMIN/GLOBULIN RATIO 0.78 (1.00-1.93); ALKALINE PHOSPHATASE 52 U/L (45-117); ALT/SGPT 7 U/L (12-78); ANION GAP 19 MEQ/L (8-16); AST/SGOT 7 U/L (7-37); BILIRUBIN,DIRECT 0.1 MG/DL (0.0-0.2); BILIRUBIN,TOTAL 0.6 MG/DL (0.2-1.0); BLOOD UREA NITROGEN 7 MG/DL (7-18); C REACTIVE PROTEIN QUANTITATIV 4.85 MG/DL (0.00-0.30); CALCIUM LEVEL 9.1 MG/DL (8.5-10.1); CARBON DIOXIDE LEVEL 22 MEQ/L (21-32); CHLORIDE LEVEL 93 MEQ/L (98-107); CREATININE FOR GFR 0.73 MG/DL (0.55-1.30); GLOMERULAR FILTRATION RATE > 60.0 (>51); GLUCOSE, FASTING 129 MG/DL (70-100); LDH LACTATE DEHYDROGENASE 184 U/L (84-246); MAGNESIUM LEVEL 1.9 MG/DL (1.8-2.4); SODIUM LEVEL 134 MEQ/L (136-145); TOTAL PROTEIN 7.1 GM/DL (6.4-8.2)
[2018-02-21 13:51] LABS: INR 1.15; PROTHROMBIN TIME 14.9 SECONDS (12.1-14.4)
[2018-02-21 13:52] LABS: PARTIAL THROMBOPLASTIN TIME 32.6 SECONDS (25.4-37.6)
[2018-02-21 15:10] LABS: ERYTHROCYTE SEDIMENTATION RATE 44 mm/hr (0-30)
[2018-02-21] MEDS: POTASSIUM CHLORIDE 10 MEQ SR TABLET PO (15:40)
== END 2018-02-21 18:24 | disposition home or self-care (01) ==
LOC: M ED 11:41
DX: E86.0 Dehydration (principal); E87.6 Hypokalemia; I25.10 Atherosclerotic heart disease of native coronary artery without angina pectoris; I50.9 Heart failure, unspecified; I25.2 Old myocardial infarction; E11.9 Type 2 diabetes mellitus without complications; M51.9 Unspecified thoracic, thoracolumbar and lumbosacral intervertebral disc disorder; K21.9 Gastro-esophageal reflux disease without esophagitis; Z95.5 Presence of coronary angioplasty implant and graft; Z87.891 Personal history of nicotine dependence; Z95.811 Presence of heart assist device; Z79.4 Long term (current) use of insulin; Z79.01 Long term (current) use of anticoagulants; Z79.899 Other long term (current) drug therapy; Z88.0 Allergy status to penicillin; Z91.030 Bee allergy status; Z91.018 Allergy to other foods
CPT/HCPCS: 83615

== ENCOUNTER → 2018-03-04 | Outpatient (CLI) | payer MEDICARE, MEDICAID | LOC: M PAIN 13:30 | DX: M46.96 Unspecified inflammatory spondylopathy, lumbar region (principal); M51.16 Intervertebral disc disorders with radiculopathy, lumbar region; K59.03 Drug induced constipation; T40.2X5A Adverse effect of other opioids, initial encounter; E11.9 Type 2 diabetes mellitus without complications; I25.2 Old myocardial infarction; Z79.01 Long term (current) use of anticoagulants; Z79.4 Long term (current) use of insulin; Z79.899 Other long term (current) drug therapy; Z88.0 Allergy status to penicillin; Z91.030 Bee allergy status; Z91.018 Allergy to other foods; Z86.73 Personal history of transient ischemic attack (TIA), and cerebral infarction without residual deficits; Z86.79 Personal history of other diseases of the circulatory system; Z95.0 Presence of cardiac pacemaker | CPT/HCPCS: G0463 ==

== ENCOUNTER → 2018-03-09 | Outpatient (CLI) | payer MEDICARE, MEDICAID | LOC: M PAIN 11:00 | DX: M46.96 Unspecified inflammatory spondylopathy, lumbar region (principal); M51.16 Intervertebral disc disorders with radiculopathy, lumbar region; K59.03 Drug induced constipation; T40.2X5A Adverse effect of other opioids, initial encounter; E11.9 Type 2 diabetes mellitus without complications; I25.2 Old myocardial infarction; Z79.01 Long term (current) use of anticoagulants; Z79.4 Long term (current) use of insulin; Z79.899 Other long term (current) drug therapy; Z88.0 Allergy status to penicillin; Z91.030 Bee allergy status; Z91.018 Allergy to other foods; Z86.79 Personal history of other diseases of the circulatory system; Z86.73 Personal history of transient ischemic attack (TIA), and cerebral infarction without residual deficits; Z95.0 Presence of cardiac pacemaker; X58.XXXA Exposure to other specified factors, initial encounter; Y92.9 Unspecified place or not applicable | CPT/HCPCS: G0463 ==

== ENCOUNTER 2018-04-10 07:17 | Emergency (ER) | payer MEDICARE, MEDICAID ==
[2018-04-10] MEDS: SODIUM CHLORIDE 0.9% INJ 10 ML SYR IV (08:01)
[2018-04-10 08:13] LABS: BASO % 0.2 % (0.0-1.0); EOS % 0.2 % (0.0-3.0); HEMATOCRIT 34.8 % (36.0-47.0); HEMOGLOBIN 10.8 g/dl (12.0-15.5); IMMATURE GRANULOCYTE % 0.4 % (0-3.0); LYMPH # 1.6 10^3/uL (1.5-4.5); LYMPH % 12.8 % (24.0-44.0); MEAN CORPUSCULAR HEMOGLOBIN 26.7 pg (27.0-33.0); MEAN CORPUSCULAR VOLUME 85.9 fl (80.0-96.0); MONO # 0.6 10^3/uL (0.0-0.8); MONO % 4.9 % (0.0-5.0); NEUTROPHILS # 10.2 10^3/uL (1.8-7.7); NEUTROPHILS % 81.5 % (36.0-66.0); PLATELET COUNT, AUTOMATED 245 10^3/uL (150-450); RED BLOOD COUNT 4.05 10^6/uL (4.00-5.40); WHITE BLOOD COUNT 12.5 10^3/uL (4.0-10.0)
[2018-04-10 08:20] LABS: INR 1.58; PROTHROMBIN TIME 19.2 SECONDS (12.1-14.4)
[2018-04-10 08:21] LABS: PARTIAL THROMBOPLASTIN TIME 36.2 SECONDS (25.4-37.6)
[2018-04-10 08:26] LABS: AMMONIA < 10 uMOL/L (<32)
[2018-04-10 08:29] LABS: LACTIC ACID SEPSIS PROTOCOL 1.1 MMOL/L (0.4-2.0)
[2018-04-10 08:30] LABS: AMORPHOUS SEDIMENT RFX MODERATE (NEGATIVE); KETONE, URINE AUTO RFX NEGATIVE (NEGATIVE); LEUKOCYTE ESTERASE UR AUTO RFX NEGATIVE (NEGATIVE); MUCUS, URINE RFX SMALL (NEGATIVE); NITRITE, URINE AUTO RFX NEGATIVE (NEGATIVE); RBC, URINE AUTO RFX 1 /HPF (0-3); SPECIFIC GRAVITY UR AUTO RFX 1.017 (1.002-1.035); SQUAM EPITHELIAL CELL UR AURFX 0 /HPF (0-6); WBC, URINE AUTO RFX 5 /HPF (0-3); YEAST LIKE CELL URINE AUTO RFX SMALL
[2018-04-10 08:39] LABS: MAGNESIUM LEVEL 1.9 MG/DL (1.8-2.4)
[2018-04-10 08:54] LABS: ALBUMIN 3.2 GM/DL (3.2-5.2); ALBUMIN/GLOBULIN RATIO 1.07 (1.00-1.93); ALKALINE PHOSPHATASE 70 U/L (45-117); ALT/SGPT 13 U/L (12-78); ANION GAP 8 MEQ/L (8-16); AST/SGOT 17 U/L (7-37); BILIRUBIN,DIRECT < 0.1 MG/DL (0.0-0.2); BILIRUBIN,TOTAL 0.3 MG/DL (0.2-1.0); BLOOD UREA NITROGEN 13 MG/DL (7-18); CALCIUM LEVEL 9.3 MG/DL (8.5-10.1); CARBON DIOXIDE LEVEL 25 MEQ/L (21-32); CHLORIDE LEVEL 106 MEQ/L (98-107); CPK CREATINE PHOSPHOKINASE 59 U/L (26-192); CREATININE FOR GFR 0.76 MG/DL (0.55-1.30); GLOMERULAR FILTRATION RATE > 60.0 (>51); GLUCOSE, FASTING 185 MG/DL (70-100); MB/CK RELATIVE INDEX 11.36 (< OR =4); POTASSIUM SERUM 4.4 MEQ/L (3.5-5.1); SODIUM LEVEL 139 MEQ/L (136-145); TOTAL PROTEIN 6.2 GM/DL (6.4-8.2); TROPONIN I 1.59 NG/ML (< 0.10)
[2018-04-10] MEDS: NS 1,000 ML IV (09:25)
[2018-04-10] MEDS ORDERED: ISOVUE-370 76% 100ML VIAL (Q9967) As Ordered (10:38)
[2018-04-10] MEDS: DOPamine HCL 800 MG in APPROPRIATE DILUENT 1 EA IV (11:06)
== END 2018-04-10 11:29 | disposition short-term general hospital (02) ==
LOC: M ED 07:17
DX: I63.9 Cerebral infarction, unspecified (principal); Z95.811 Presence of heart assist device; E10.9 Type 1 diabetes mellitus without complications; I50.9 Heart failure, unspecified; I25.10 Atherosclerotic heart disease of native coronary artery without angina pectoris; E78.00 Pure hypercholesterolemia, unspecified; Z79.899 Other long term (current) drug therapy; Z79.4 Long term (current) use of insulin; Z79.01 Long term (current) use of anticoagulants; Z88.0 Allergy status to penicillin; Z91.018 Allergy to other foods; Z91.030 Bee allergy status
CPT/HCPCS: J1265